=== PATIENT | male | born 1990 | race Caucasian/White ===

== ENCOUNTER 2022-08-10 04:22 | Emergency (ER) | payer BC ==
[~2022-08-10] VITALS: Ht 180.3 cm; Wt 67.1 kg
[2022-08-10 04:37] VITALS: O2SAT 99
[2022-08-10 06:05] LABS: CHLORIDE 109 mEq/L (98-107)
[2022-08-10 06:10] LABS: HEMOGLOBIN 14.6 g/dL (14.0-18.0); MEAN CORPUSCULAR HEMOGLOBIN 31.5 pg (28.0-32.0); MEAN CORPUSCULAR VOLUME 90.5 fL (80.0-94.0); PLATELET 310 x1000/uL (130-400); RED BLOOD CELL COUNT 4.65 mill/uL (4.7-6.1); RED CELL DISTRIBUTION WIDTH 12.8 % (11.6-14.6)
[2022-08-10 06:50] VITALS: BP 135/82; PULSE 81; RESP 18; TEMP 98.5
== END 2022-08-10 06:58 | disposition home or self-care (01) ==
LOC: ER 04:45
DX: U07.1 COVID-19 (principal)
CPT/HCPCS: 36415; 71046; 80048; 85027; 99284